=== PATIENT | female | born 1965 | race Caucasian/White ===

== ENCOUNTER 2022-11-02 08:24 | Emergency (ER) | payer OTHER ==
--- OUTSIDE RECORDS SUMMARY | 2022-11-02 08:34 | XMS REPORT | Continuity of Care Document ---
:1965 Author Organization [facility] t Address [address] [facility] [address] [place] [address] Care Team Providers Name Role Phone Pcp, Patient Does Not Have A Primary Care Physician [phone] ANDREA LANG Attending Clinician Unavailable DESTIN HAGEN Attending Clinician Unavailable Therapy, Adc Covid Infusion Attending Clinician Unavailable Destin Hagen MD Attending Clinician Doctor Unassigned, [place] Attending Clinician Unavailable Hanny Britton RN Attending Clinician Unavailable Only, Ang Db Test Attending Clinician Unavailable Arlene Ya MD Attending Clinician ARLENE YA Attending Clinician Unavailable Mark Antoine Attending Clinician Unavailable Physician, No Primary or Family Admitting Clinician Unavaila ble UNDEFINED Admitting Clinician Unavailable Payers Payer Name Policy Type Policy Number Effective Date Expiration Date S cam [employer] 2 [id number] 2020 00:00:00 [employer] COMMERCIAL [id number] 2019 OUT OF NETWORK 00:00:00 Problems This patient has no known problems. Allergies, Adverse Reactions, Alerts Allergy Allergy Status Severity Reaction(s) Onset Inactive Treating Comm ents Source Name Type Date Date Clinician Hydrocod Propensi Active Unknown - Uni vers one ty to See comments 4-05 ity of adverse 00:00: [place] reaction 00 Medical s Branch HYDROCOD DRUG Active Unknown-Cmnt Un ajit ONE INGREDI -05 ity of 00:00: [place] 00 Medical Branch hydrocod DA Active MO [facility] one 10-26 Clear 00:00: [place] 00 [facility] hydrocod DA Active MO "FEELS LIKE [facility] one COMING OUT 10-26 Clear OF MY SKIN" 00:00: [place] 00 [facility] NO KNOWN Drug Active Univers ALLERGIE Class ity of S [facility] Social History Social Habit Start Date Stop Date Quantity Comments Source Exposure to Not sure [facility] SARS-CoV-2 (event) [facility] Sex Assigned At [birth year] [facility] 00:00:00 00:00:00 Medical [place] Smoking Status Start Date Stop Date Source Unknown if ever smoked [facility] Medications Ordered Filled Start Stop Current Ordering Indication Dosage Frequency Signature Comments Components Source Medication Medication Date Date Medication? Clinician (SIG) Name Name casirivimab 2020-05- No [id number] 1200mg 1,200 mg, [facility] -imdevimab 02-21 Subcutaneo it y of (REGEN-COV 20:45: 19:27 us, ONCE, [place] (EUA)) 00 :00 1 dose, On Medical injection [facility] 1,200 mg 02/21/21 at 1545, Routine Vital Signs Vital Name Observation Time Observation Value Comments Source Systolic blood 2021-02-21 20:12:00 140 mm[Hg] Univer sity of pressure [facility] Diastolic blood 2021-02-21 20:12:00 64 mm[Hg] [facility] rate 2021-02-21 20:12:00 63 /min [facility] Body temperature 2021-02-21 20:12:00 36.83 Caty [facility] Respiratory rate 2021-02-21 20:12:00 18 /min [facility] Oxygen saturation in 2021-02-21 20:12:00 95 /min [facility] Arterial blood by [facility] Pulse oximetry Branch Body height 2021-02-21 19:00:00 172.7 cm [facility] Body weight 2021-02-21 19:00:00 99.791 kg [facility] BMI 2021-02-21 19:00:00 33.45 kg/m2 [facility] Procedures Procedure Date / Time Performed Performing Clinician [facility] e CONSENT/REFUSAL FOR 2021-02-21 05:01:00 Doctor Unassreinier, Betty Marie [facility] DIAGNOSIS AND Name [facility] TREATMENT [id number] 2020-02-02 00:00[facility]00 [facility] [id number] 2020-02-02 00:00:00 [facility] [id number] 2019-11-10 00:00:00 [facility] [id number] 2019-11-10 00:00:00 [facility] Encounters Start End Encounter Admission Attending Care Care Encounter Source Date/Time Date/Time Type Type Clinicians Facility Department ID 2021-02-22 2021-02-22 Outpatient SARAH LANG [id number] Sarah 08:45:00 08:45:00 ANDREA vann 2021-02-21 2021-02-21 Outpatient Felecia HAGEN [facility] [id number] Univers 14:00:00 14:00:00 DESTIN olivo [facility] 2021-02-21 2021-02-21 Nurse Therapy, Ad[facility] Covid Infusion [facility] [id number] Univers 12:11:36 13:11:36 Visit Destin Hagen 350.1.13.10 ity of [place] [id number] [facility] 053 Branch 2021-02-21 2021-02-21 Orders Doctor EPPERSON 1.2.840.114 [id number] Univers 00:00:00 00:00:00 Only UnassignedJUSTO 350.1.13.10 ity of [place] [facility] 4.2.7.2.686 [place] as [phone] [facility] 009 Branch 2021-02-19 2021-02-19 Letter ZEENAT Britton 1.2.840.114 [id number] Univers 00:00:00 00:00:00 (Out) Hanny KEMP 350.1.13.10 it y of [facility] 4.2.7.2.686 [place] [id number] [address] 2021-02-18 2021-02-18 Laboratory Only, Ang Db Test [facility] 1.2.8 40.114 [id number] Univers 14:00:50 14:15:50 Only Arlnee Ya [facility] 350.1.13.10 ity of [place] 4.2.7.2.686 [place] [id number] [facility] [address] Medical Office Building 2021-02-18 2021-02-18 Outpatient R JOSE [facility] [id number] Univers 14:00:00 14:00:00 ARLENE [facility] 2020-02-02 2020-04-18 Inpatient PETER Antoine HCATO [id number] [facility] 07:30:00 03:01:09 Mark [facility] 2020-02-02 2020-02-02 Outpatient IVETH Antoine LABO [id number] [facility] 17:50:00 17:50:00 Mark 50 [facility] 2019-10-27 2019-11-13 Inpatient PETER Antoine HCATO [id number] [facility] 14:30:00 09:57:26 Mark [facility] 2019-10-27 2019-10-27 Outpatient RAJEEV AntoineCL LABO [id number] [facility] 18:45:00 18:45:00 Mark 70 [facility] Results Test Description Test Time Test Comments Results Result Comments Source BASIC METABOLIC PANEL 2020-02-03 06:35:00 Test Item Value Reference Range Interpretation Comme nts SODIUM (test code = NA) 145 mmol/L 136-145 N POTASSIUM (test code = K) 4.5 mmol/L 3.5-5.1 N CHLORIDE (test code = CL) 108.0 mmol/L 98-107 H CARBON DIOXIDE (test code = 28.6 mmol/L 21-32 N CO2) GLUCOSE (test code = GLU) 125 mg/dL 70-110 H BLOOD UREA NITROGEN (test code 12 mg/dL 7-18 N = BUN) GLOMERULAR FILTRATION RATE 81.5 >60 U nit of measure: mL/min/1.73 (test code = GFR) [id number] e Range:Healthy Adults >90 mL/m in/1.73 m2 For Chronic Kidney Disease: Stage II Mild Decreas e in GFR 60-90 Stage III Moder ate Decrease in GFR 30-59 St age IV Severe Decrease in GFR 15-29 Stage V Kidney Failure <15 CREATININE (test code = CREAT) 0.74 mg/dL 0.55-1.30 N CALCIUM (test code = CA) 8.9 mg/dL 8.2-10.1 N HGB [id number] 05:59:00 Test Item Value Reference Range Interpretation Comments HEMOGLOBIN (test code = HGB) 11.1 g/dL 12-16 L HEMATOCRIT (test code = HCT) 34.1 % 37-47 L SPECIMEN COMMENT: POD #1- XR KNEE 1 OR 2 V [id number] 11:00:00 Patient Name: MARICHUY JONES Unit No: [id number] EXAMS: CPT CODE: [id number] XR KNEE 1 [place] 2V RT [address]74 AP AND LATERAL VIEW OF THE RIGHT KNEE COMMENT: Patient is status post total right knee arthroplasty. The prosthesis appears to be in good position. at 1100 Reported and signed by: Krystal Tidwell MD CC: Mark Antoine MD Technologist: ORA GRIFFIN. RT(R) Transcribed D/ (1100) [id number] [facility] NAME: MARICHUY JONES [address] [facility] PHYS: Mark Lockhart MD : 1965 AGE: 54 SEX: [place], [place] [address] LOC: Y.302 A PHONE #: [phone] EXAM DATE: 02/02/2020STATUS: ADM IN FAX #: [phone] RAD #: D/C DT PAGE 1 Signed Report Patient Name: MARICHUY JONES Unit No: [id number] EXAMS: CPT CODE: [id number] XR KNEE 1 OR 2 V RT 26578 (Continued) Orig Print D/T: S: 02/02/2020 (1103) [facility] NAME: MARICHUY JONES [address] [facility] PHYS: Mark Lockhart MD : 1965 AGE: 54 SEX: F [place], [place] [address] LOC: YCheryle302 A PHONE #: [phone] EXAM DATE: 02/02/2020 STATUS: ADM IN FAX #: [phone] RAD #: D/C DT PAGE 2 Signed ReportBASIC METABOLIC [id number] 06:25:00 Test Item Value Reference Range Interpretation Comments SODIUM (test code = 143 mmol/L 136-145 N NA) POTASSIUM (test code = 4.3 mmol/L 3.5-5.1 N K) CHLORIDE (test code = 105.0 mmol/L 98-107 N CL) CARBON DIOXIDE (test 29.4 mmol/L 21-32 N code = CO2) GLUCOSE (test code = 141 mg/dL 70-110 H GLU) BLOOD UREA NITROGEN 13 mg/dL 7-18 N (test code = BUN) GLOMERULAR FILTRATION 99.9 >60 Unit o f measure: RATE (test code = GFR) mL/mi n/1.73 m1Eazdidrui Range:Healthy Adults >90 mL/min/1.73 m2 For Chronic Kidney Disease: Stage II Mild Decrease i n GFR 60-90 Stage III Moderate Decrea se in GFR 30-59 St age IV Severe Decre ase in GFR 15-29 St age V Kidney Failur e <15 CREATININE (test code 0.62 mg/dL 0.55-1.30 N = CREAT) CALCIUM (test code = 8.4 mg/dL 8.2-10.1 N CA) CBC W/AUTO [id number] 05:56:00 Test Item Value Reference Range Interpretation Comments WHITE BLOOD CELL (test code = 13.3 K/mm3 5.8-11.0 H WBC) RED BLOOD CELL (test code = RBC) 3.81 M/mm3 4.2-5.4 L HEMOGLOBIN (test code = HGB) 11.6 g/dL 12-16 L HEMATOCRIT (test code = HCT) 35.4 % 37-47 L MEAN CELL VOLUME (test code = 93 fL 80-98 N MCV) MEAN CELL HGB (test code = MCH) 30.4 pg 27-34 N MEAN CELL HGB CONCENTRATION (test 32.8 g/dL 30.8-34.1 N code = MCHC) RED CELL DISTRIBUTION WIDTH (test 13.1 % 11-16 N code = RDW) PLT (test code = PLT) 261 K/mm3 130-400 N MEAN PLATELET VOLUME (test code = 11.0 fL 8.9-12.1 N MPV) NEUTROPHIL % (test code = NT%) 85.3 % 45-70 H LYMPHOCYTE % (test code = LY%) 8.3 % 20-40 L MONOCYTE % (test code = MO%) 5.9 % 3-10 N EOSINOPHIL % (test code = EO%) 0.0 % 1-5 L BASOPHIL % (test code = BA%) 0.1 % 0.0-1.1 N NEUTROPHIL # (test code = NT#) 11.37 K/mm3 2.00-7.50 H LYMPHOCYTE # (test code = LY#) 1.11 K/mm3 1.50-4.00 L MONOCYTE # (test code = MO#) 0.78 K/mm3 0.2-0.8 N EOSINOPHIL # (test code = EO#) 0.00 K/mm3 0.04-0.4 L BASOPHIL # (test code = BA#) 0.01 K/mm3 0.02-0.10 L MANUAL DIFF REQUIRED (test code = NO MANUAL DIFF MDIFF) NUCLEATED RED BLOOD CELL (test 0 % 0-0 N code = NRBC) - XR KNEE 1 OR 2 V [id number] 12:10:00 Patient Name: MARICHUY JONES Unit No: [id number] EXAMS: CPT CODE: [id number] XR KNEE 1 [place] 2 [place] [address] LEFT KNEE 2 VIEWS PORTABLE COMMENT: The patient is status post joint replacement which is articulating normally. at 1210 Reported and signed by: John Zelaya MD CC: Mark Antoine MD Technologist: CLIFF KIM RT(R) Transcribed D/ (1210) t.LUBNAR.JCL [facility] NAME: MARICHUY JONES NS [address] [facility] PHYS: Mark Lockhart MD : 1965 AGE: 54 SEX: F [place], [place] [address] LOC: Y.998 12 PHONE #: [phone] EXAM DATE: 11/10/2019 STATUS: ADM IN FAX#: [phone] RAD #: D/C DT PAGE 1 Signed Report Patient Name: MARICHUY JONES Unit No: [id number] EXAMS: CPT CODE: [id number] XR KNEE 1 OR [address] [place] [address] (Continued) Orig Print D/T: S: 11/10/2019 (1213) [facility] NAME: MARICHUY JONES [address] [facility] PHYS: Mark Lockhart MD : 1965 AGE: 54 SEX: F [place], [place] [address] LOC: Y.998 12 PHONE #: [phone] EXAM DATE: 11/10/2019 STATUS: ADM IN FAX #: [phone] RAD #: D/C DT PAGE 2 S igned Report- USG NDL PLACEMENT (Bxg/Asp)2019-10-28 10:16:00 Patient Name: MARICHUY JONES Unit No: [id number] EXAMS: CPT CODE: [id number] USG NDL PLACEMENT (Bxg/Asp) 31293 INDICATION: Left knee pain. PROCEDURE: Ultrasound guided cryoanalgesia (Iovera) of the left anterior femoral cutaneous nerve and the superior and inferior branches of the infrapatellar branch of the saphenous nerve. DIRECTOR SEARCH: Dr. Mejia. MEDICATIONS: 1 % Lidocaine local anesthesia CO NTRAST: None. COMPLICATION: None immediately evident. DESCRIPTION: After the procedure, including indication and potential complications had been discussed with the patient and questions answered, written informed consent was obtained. The patient was then taken to the ultrasound suite and placed on the table in supine position with their treatment leg fully extended. The skin of the left knee was evaluated sonographically. The skin over the anterior femoral cutaneous nerve and the superior and inferior branches of the infrapatellar branch of the saphenous nerve was marked. The skin was then prepped and draped sterilely. A time out was performed. After achieving 1% Lidocaine local anesthesia, theIovera cryoanalgesia needle was inserted into the top of the treatment area, and the treatment was initiated. The duration of one treatment cycle was 60 seconds. After each treatment cycle, the needle was removed and repositioned in an overlapping position over the adjacent previous treatment location. A new treatment cycle was started. The treatment cycle was repeated a total of 4 times along the treatment area to treat the two branches of the infrapatellar saphenous nerve. The treatment cycle was repeated a total of 4 times a long a second treatment area to treat the anterior femoral cutaneous nerve. The patent's skin was cleaned and the wound was covered with a band-aid. The patient was instructed to stand and mobilize the knee joint. No immediate complication were observed. The patient tolerated the procedure well and was subsequently discharged in stable condition with instructions for follow up. Preprocedural pain level: 5/ 10 Postprocedural pain level: 4/ 10 IMPRESSION: Cryoanalgesia of the left anterior femoral cutaneous nerve and the superior and inferior branches of the infrapatellarbranch of the saphenous nerve as above. [facility] NAME: MARICHUY JONES [address] [facility] PHYS: Mark Lockhart MD : 1965 AGE: 54 SEX: F [place] [address] LOC: ElRAD PHONE #: [phone] EXAM DATE: 10/27/2019 STATUS: DEP CLI FAX #: [phone] RAD #: D/C DT PAGE 1 Signed Report (CONTINUED) Patient Name: MARICHUY JONES Unit No: [id number] EXAMS: CPT CODE: [id number] USG NDL PLACEMENT (Bxg/Asp) 10458 (Continued) ElectronicallySigned by Henny Mejia on 10/28/2019 at 1016 Reported and signed by: John Mejia M.D. CC: Mark Antoine MD Technologist: STEPHANIE DUCKWORTH RDMS, RVT Transcribed D/ (1016) DeshawnAlize [facility] NAME: MARICHUY JONES [address] [facility] PHYS: Mark Lockhart MD : 1965 AGE: 54 SEX: F [place] [address] LOC: Y.RADPHONE #: [phone] EXAM DATE: 10/27/2019 STATUS: DEP CLI FAX #: [phone] RAD #: D/C DT PAGE 2 Signed Report Patient Name: MARICHUY JONES Unit No: [id number] EXAMS: CPT CODE: [id number] USG NDL PLACEMENT (Bxg/Asp) 08991 (Continued) Orig Print D/T: S: 10/28/2019 (1019) [facility] NAME: MARICHUY JONES [address] [facility] PHYS: Mark Lockhart MD : 1965AGE: 54 SEX: F [place] [address] LOC: Y.RAD PHONE #: [phone] EXAM DATE: 10/27/2019 STATUS: DEP CLI FAX #: [phone] RAD #: D/C DT PAGE 3 Signed ReportCOMPREHENSIVE METABOLIC PANEL 2019-10-27 15:34:00 Test Item Value Reference Range Interpretation Comments SODIUM (test code = 142 mmol/L 136-145 N NA) POTASSIUM (test code = 3.6 mmol/L 3.5-5.1 N K) CHLORIDE (test code = 102.0 mmol/L 98-107 N CL) CARBON DIOXIDE (test 26.1 mmol/L 21-32 N code = CO2) GLUCOSE (test code = 138 mg/dL 70-110 H GLU) BLOOD UREA NITROGEN 12 mg/dL 7-18 N (test code = BUN) GLOMERULAR FILTRATION 82.8 >60 Unit o f measure: RATE (test code = GFR) mL/mi n/1.73 n1Lualvhkvk Range:Healthy Adults >90 mL/min/1.73 m2 For Chronic Kidney Disease: Stage II Mild Decrease i n GFR 60-90 Stage III Moderate Decrea se in GFR 30-59 St age IV Severe Decre ase in GFR 15-29 S tage V Kidney Failur e <15 CREATININE (test code 0.73 mg/dL 0.55-1.30 N = CREAT) TOTAL PROTEIN (test 6.4 g/dL 6.4-8.2 N code = PROT) ALBUMIN (test code = 4.0 g/dL 3.4-5.0 N ALB) GLOBULIN (test code = 2.4 g/dL 2.2-4.2 N GLOB) ALBUMIN/GLOBULIN RATIO 1.7 0.7-2.0 N (test code = A/G) CALCIUM (test code = 8.9 mg/dL 8.2-10.1 N CA) BILIRUBIN TOTAL (test 0.40 mg/dL 0.2-1.00 N code = BILT) SGOT/AST (test code = 23.0 U/L 15-37 N AST) SGPT/ALT (test code = 38.0 U/L 12-78 N Please note new ALT) normal range. ALKALINE PHOSPHATASE 64 U/L 46-116 N TOTAL (test code = ALKP) CBC W/AUTO [id number] 15:21:00 Test Item Value Reference Range Interpretation Comments WHITE BLOOD CELL (test code = WBC) 8.0 K/mm3 5.8-11.0 N RED BLOOD CELL (test code = RBC) 4.25 M/mm3 4.2-5.4 N HEMOGLOBIN (test code = HGB) 12.9 g/dL 12-16 N HEMATOCRIT (test code = HCT) 38.8 % 37-47 N MEAN CELL VOLUME (test code = MCV) 91 fL 80-98 N MEAN CELL HGB (test code = MCH) 30.4 pg 27-34 N MEAN CELL HGB CONCENTRATION (test 33.2 g/dL 30.8-34.1 N code = MCHC) RED CELL DISTRIBUTION WIDTH (test 13.1 % 11-16 N code = RDW) PLT (test code = PLT) 258 K/mm3 130-400 N MEAN PLATELET VOLUME (test code = 11.0 fL 8.9-12.1 N MPV) NEUTROPHIL % (test code = NT%) 59.1 % 45-70 N LYMPHOCYTE % (test code = LY%) 29.9 % 20-40 N MONOCYTE % (test code = MO%) 6.7 % 3-10 N EOSINOPHIL % (test code = EO%) 2.9 % 1-5 N BASOPHIL % (test code = BA%) 1.0 % 0.0-1.1 N NEUTROPHIL # (test code = NT#) 4.70 K/mm3 2.00-7.50 N LYMPHOCYTE # (test code = LY#) 2.38 K/mm3 1.50-4.00 N MONOCYTE # (test code = MO#) 0.53 K/mm3 0.2-0.8 N EOSINOPHIL # (test code = EO#) 0.23 K/mm3 0.04-0.4 N BASOPHIL # (test code = BA#) 0.08 K/mm3 0.02-0.10 N MANUAL DIFF REQUIRED (test code = NO MANUAL DIFF MDIFF) NUCLEATED RED BLOOD CELL (test 0 % 0-0 N code = NRBC) Notes Date/Time Note Provider Source 2020-02-03 07:10:00-00:00 [id number] [place] [address] PATIENT NAME: MARICHUY JONES ADMIT DATE : 02/02/20 ACCOUNT NO: [id number] ROOM NO: Y.302 AGE: 54 REPORT TYPE: DISCHARGE SUMMARY REPORT SEX: F ADMITTING PHYSICIAN:Mark Antoine MD ATTENDING PHYSICIAN:Mark Antoine MD ADMISSION DATE: 02/02/2020 DISCHARGE DATE: 02/03/2020 01:00:00 ADMITTING DIAGNOSIS: Right knee osteoarthritis. PRIMARY DISCHARGE DIAGNOSIS: Right knee osteoart hritis. OPERATIVE PROCEDURE PERFORME D: On 02/02/2020, computer-assisted imageless right total knee arthroplasty. HOSPITAL COURSE: Ms. Jones was taken to the ope rative suite on the date of admission where she underwent a computer-assiste d imageless right total knee arthroplasty without complic ations. Postoperatively, she received a total of 24 hours of IV antibiotic therapy. On the day of [facility], she is eating and voiding without difficulty. Her dressing is dry and intact. Her distal neurovascular status is intact. Hemoglob in was 11.1. She will be discharged to home today, weightbearing as tolerated. She was on aspirin, as well as compressive stockings for DVT prophylaxis. Outpa tient physiotherapy has been prescribed. Office followup in 2 weeks. CONDITION ON DISCHARGE: She is in stable conditi on at the time of discharge without questions or complaints. DISCHARGE MEDICATIONS: Please see discharge medi cation reconciliation sheet. Dictated By: Mark Antoine MD WT: DS:JEFFERY/MEAGAN/NTS Conf#: [id number]#: [id number] Authenticated by Mark Antoine MD On 0 06:20:29 AM Electronically Signed by Mark Antoine MD on 0 02/04/20 at 0620 PATIENT NAME: MARICHUY JONES 2020-02-02 14:16:00-00:00 [facility] Clinical Note REPORT#:[id number] REPORT STATUS: Signed DATE:02/02/20 TIME: 1415 PATIENT: MARICHUY JONES UNIT #: [id number] [facility] AGE: 54 SEX: F ATTEND: Cm Antoine MD ADM AUTHOR: Ariane Gamino MD * ALL edits or amendments must be made on the Pocits/computer document * Clinical Note Note: Internal Medicine Ariane Gamino MD (office: [phone]) Internal Medicine Consult at request of : Dr. Laura Antoine Chief Complaint: right knee pain HPI: 54 yo F is now s/p Right Total Knee Arthrop lasty (TKA) by Dr. Antoine. Ms. Jones relates years of progressive right kn ee pain (recently severe), worse with activity, and popping crunchy with re stricted motion at times in quality. She has failed cons ervative management. She had a left TKA on 11/10/19. Comorbidities: see below. PmHx: . Hypertension, Hypercholesterolemia, Asth ma, Hypothyroidism, Gerd, Psoriatic arthritis Migraines, Osteoarthritis ALLERGY: Allergies Allergy Severity Reaction Updated Coded hydrocodone Intermediate "FEELS LIKE COMING OU T 10/27/19 OF MY SKIN" Home Medications: Home Medications: METOPROLOL SUCC XL (TOPROL XL) 100 MG PO DAILY LEVALBUTEROL (XOPENEX HFA 45 MCG/ACT 15 GM) 1 PU FF INH RTQ4H PRN PRN ASTHMA IRBESARTAN (AVAPRO) 300 MG PO DAILY LEVOTHYROXINE (SYNTHROID) 75 MCG PO DAILY OMEPRAZOLE DR (OMEPRAZOLE) 20 MG PO DAILY UBIDECARENONE (CO Q-10) (Unknown Dose) PO DAILY ROSUVASTATIN (CRESTOR) 10 MG PO MON/WED/FRI HYDROCHLOROTHIAZIDE (HCTZ) 25 MG PO MON/WED/FRI NAPROXEN SODIUM (ALEVE) 440 MG PO Q12H PRN PRN P AIN CHOLECALCIFEROL (VITAMIN D3) (VITAMIN D3) 1,000 UNITS PO DAILY CYANOCOBALAMIN (VITAMIN B-12) 1,000 MCG PO DAILY SgHx: . Left knee meniscus, face lift, wisdom te eth, left TKA SHx: Tob: ppd x 40 yrs. FHx: .No significant hx of DVT/PE. Alcohol: 2-4x/week Drugs: none Lives: with spou se ROS: [X] all systems reviewed and negative excep t- [ ] Con: . Fever/ Wt loss [ ] CV: cpain/edema. [ ] Pul: . cough/SOB [ ] GI: hematemesis/diarrhe a [ ] : . dysuria or hematuria [X] MS: knee pain [ ] Neuro: . headache/loss sensation [ ] Heme: . adenopathy/Ecchymosis Vitals: Vital Signs: Date Time Temp Pulse Resp B/P B/P Pulse O2 O2 Flow FiO2 Mean Ox Delivery Rate 02/01 2213 36.4 88 20 136/76 100 96 Nasal cannula 02/01 2017 37.0 82 15 159/93 114.8 97 02/01 1902 35.2 87 18 175/72 104 97 Nasal cannula 02/01 1537 97 Nasal 3.217008 cannula 02/01 1523 36.6 86 18 144/79 100.9 98 Nasal 3.0 94140 cannula 02/01 1156 35.9 67 18 156/82 106.6 100 Nasal 3. 153164 cannula 02/01 0953 100 Nasal 3.152207 cannula 02/01 0950 Nasal 3.547534 cannula 02/01 0944 35.9 67 17 163/98 119.8 96 Nasal 3.0 58307 cannula 02/01 0904 Nasal 3.303477 cannula 02/01 0845 73 20 156/72 100 Nasal 3.872957 cannula 02/01 0830 74 20 155/70 100 Nasal 3.924756 cannula 09/15 0814 Simple 6.415624 mask 02/01 0812 36.4 69 16 100/55 93 Simple 6.723229 mask 02/01 0600 36.3 68 16 201/81 98 Room air Gen: Alert, in mild discomfort, nl nutrition. EYE: Nl lids conjunctiva. ENT: Nl ears Nose, nl lips,. Neck: Supple, nl thyroid, No masses. CV: Regular Rate Rhythm, no heave or significant murmur. Edema- none Feet toes normal temperature. RESP: Clear to Auscultation, normal Respiratory effort. ABD: Soft, NonDistended,. LYM: No significant cervical Lymphadenopathy. MS: No sign of compartment syndrome, Knee is wra pped, NEURO: Nonfocal, grossly normal sensation of LE, +Ankle DF/PF PSY: Normal insight, Normal mood, oriented, . Preop Labs (11/11/19): CBC:. Hgb 11.6, Plt 261, CHEM: Na 143, K 4.3, Cr 0.62 (eGFR 99.9%), . (medium to high risk of complications or morbidi ty) (major surgery) (IV sedative, meds) Assessment Plan 1.) Anemia of Acute Blood Loss- .will recheck to elías. 2.) S/p RTKA .acute pain control. Anticoagulatio n as per 3.) Hypertension- .follow BP and hold Rxs if SBP <120. Ariane Gamino M.D. Thanks! Electronically Signed by Ariane Gamino MD on 02/02 at 0003 [facility] #:[id number] END OF REPORT 2020-02-02 08:00:00-00:00 [id number] [facility] [place] [address] PATIENT NAME: MARICHUY JONES ADMIT DATE: 02/02/20 ACCOUNT NO: [id number] ROOM NO: Y.302 AGE: 54 REPORT TYPE: OPERATIVE REPORT SEX: F ADMITTING PHYSICIAN:Mark Antoine MD ATTENDING PHYSICIAN:Mark Antoine MD OPERATION DATE: 02/02/2020 PREOPERATIVE DIAGNOSIS: Right knee osteoarthriti s, M17.11. POSTOPERATIVE DIAGNOSIS: Right knee osteoarthrit is, M17.11. OPERATIVE PROCEDURES PERFORMED: 1. Computer-assisted imageless right total knee arthroplasty, 07277. 2. 11435. IMPLANTS UTILIZED: DePuy Sigma rotating platform total knee arthroplasty, size 3 right posterior-stabilized femur, size 4 mobile-bearing tibial tray, 3 x 10 mm rotating platform posterior-stabilized tibial in sert, and 35-mm oval patella. All components cemented. ANESTHESIA: General. TOURNIQUET TIME: 18 minutes. ESTIMATED BLOOD LOSS: Less than 20 mL. SURGEON: Mark Antoine MD DENSITY CONTROL PUNCHER: MALCOLM Irving CLINICAL INDICATIONS: Ms. Jones is a very pleas ant 54-year-old female from [place], [place], who has been having severe and progressive pain involving her right knee. Her pain is occurring on a daily basis. Her pain has been refractory to extensive nonoperative interventio n. She has undergone a prior left total knee arthroplasty, has done exceeding ly well with this. Due to her progressive pain and lack of response to nonoperative treatment, she is admitted for computer-assisted imageless right total knee arthroplasty. OPERATIVE NARRATIVE: 1. COMPUTER-ASSISTED IMAGELESS RIGHT TOTAL KNEE ARTHROPLASTY, 54097. 2. 14070. Ms. Jones was brought to [facility] operative suite, at which time, she was placed in supine position on the OR table. Routine monitor s were established. General anesthesia was delivered. Af ter satisfactory induction of general anesthesia, a tourniquet was applied to the patient's right lower extremity per Ms. Damon and the right leg was circumfere ntially prepped and draped in usual sterile fashion PATIENT NAME: MARICHUY JOENS per Marisol. The leg was then elevated, exsanguinated, tourniquet insufflated to 300 mmHg. The knee was flexed to 100 degrees. Anterior midline incision was performed. Medial parapatellar arthrotomy was pe rformed. Patella was everted laterally. Severe grade IV changes noted involvi ng the medial compartment, patellofemoral joint, grade II to III changes in lateral compartment. Ligament balancing was achieved. Hypertrophic os teophytes were resected. Medial and lateral menisci were excised. Anterio r and posterior cruciate ligaments were then resected. At this time, a centramedullary pin was placed i n the anatomic center of the distal femur. The OrthAlign distal femoral resec tion guide was then placed across the centramedullary pin. The computer liberty mary were placed and the knee was registered. The distal f emoral resection guide was then pinned in 3 degrees of flexion, 0 degrees of varus valgus angulation referable to the mechanical axis. 10 mm were then resected off the distal fe mur. The OrthAlign guide was removed and the distal femur was appropriately s ized. A size-3 cutting block was used to create the anterior, followed by pos terior, followed by chamfer cuts. The appropriate osteotomy guide was then p laced across distal femur and the femoral notch was resected. The proximal tib ia was translated anteriorly. Utilizing extramedullary instrumentation, the pr oximal tibia was resected perpendicular to its mechanical axis resecting 1 0 mm from the lateral tibial plateau. The proximal tibia was appropri ately sized and a size-4 baseplate was noted to provide optimal coverage. The proximal tibia was appropriately prepped. The patella was then resected so as to ensure orthodoxy of normal height with prosthesis in place. Flexion and extension gaps w ere checked and noted to be equal. Trial components were placed in the knee. Optimal stability was n oted with a 10 mm insert, 0 degrees of gravity extension with 135 de grees of gravity flexion were present. Patellofemoral tracking was normal limits. There was no varus or valgus instability noted. The knee was stable in both f lexion as well as extension. The trial components were removed. The b beti surfaces were prepared with cement implantation utilizing pulsatile lavage irrigati on. Medium Hemovac drain was then placed deep to the extensor mechanism and t he knee was placed into 70 degrees of flexion. Arthrotomy closed in waterti ght fashion with a 2.0 Quill suture. Skin was closed with interrupted 0 Vicry l, followed by 2-0 Vicryl, followed by surgical ivis per Ms. Marcela livingston. Sterile dressing was applied by Ms. Damon. The patient was then extubated, taken to r ecovery room awake and alert without any anesthetic or operative complication s. At the end of the case, sponge and needle counts were correct x2. During the procedure, Ms. Damon was inval uable in positioning the patient along with preparation and draping of extremity. She w as also responsible for providing surgical exposure throughout the proce dure, which greatly expedited performance of the procedure in addition to prot ection of neurovascular structures. Finally, she was responsible for shree sure of the postoperative incisions and application of postoperative dress ing. The OrthAlign computer guide was invaluable in reducing both intraoperative and postoperative blood loss due to the fact that no intramedullary hole was placed in the distal femur. In addition, it has been sh own that the accuracy of the OrthAlign system greatly improves distal femoral resection as compared to standard intramedullary instrumentation. PATIENT NAME: MARICHUY JONES Dictated By: Mark Antoine MD WT: OP:JEFFERY/MAEGAN/NTS Conf#: [id number]/DID#: [id number] Authenticated by Mark Antoine MD On 0 09:39:45 AM Electronically Signed by Mark Antoine MD on 0 02/02/20 at 0940 PATIENT NAME: MARICHUY JONES 2020-02-02 07:52:00-00:00 [facility] Brief Op Note REPORT#:[id number] REPORT STATUS: Signed DATE:02/02/20 TIME: 751 PATIENT: MARICHUY JONES UNIT #: [id number] ROOM/BED: [place] [address] : 64 AGE: 54 SEX: F ATTEND: Cm Antoine MD ADM AUTHOR: Mark Antoine MD * ALL edits or amendments must be made on the el ectronic/computer document * Op/Inv Proc Note - Brief Pre-procedure diagnosis: Right knee OA Post-procedure diagnosis: same as pre procedure dx Procedures performed: computer assisted imageless right TKA Primary Surgeon: Arash Pediatric Oncology Nurse(s): Marisol FOWLER Findings: as above Complications: none Estimated blood loss in ml's: 20 cc Specimens removed/altered: none Electronically Signed by Mark Antoine MD on at 0754 RPT #:[id number] END OF REPORT 2020-01-31 10:36:00-00:00 [id number], [place] [address] PATIENT NAME: MARICHUY JONES ADMIT DATE: 02/02/20 ACCOUNT NO: [id number] ROOM NO: Y.998 AGE: 54 REPORT TYPE: HISTORY AND PHYSICAL SEX: F ADMITTING PHYSICIAN:Mark Antoine MD ATTENDING PHYSICIAN:Mark Antoine MD ADMISSION DATE: 02/02/2020 ADMITTING DIAGNOSIS: Right knee osteoarthritis, M17.11. HISTORY OF PRESENT ILLNESS: Ms. Jones is a very pleasant 54-year-old female, who is well known to me from a previous left tot al knee arthroplasty. She is employed as a realtor. She has done exceedingly well with her left knee. She is having progressive and disabling pain in the right knee. The pain is occurring on a daily basis. Her pain has been re fractory to extensive nonoperative intervention including intraarticul ar injections, bracing, physiotherapy and anti-inflammatories. Her clini shena as well as radiographic evaluation revealed severe tricompartmental arth ropathy. She is admitted for computer-assisted imageless right total knee art hroplasty. PAST MEDICAL HISTORY: Anemia, asthma, hypertensi on, migraine headaches, hypothyroidism, hiatal hernia, reflux, and sleep apnea. PAST SURGICAL HISTORY: Knee arthroscopy, left to connor knee arthroplasty. FAMILY HISTORY: Arthritis, asthma, breas t carcinoma, lung carcinoma, diabetes, hypertension, and cerebrovascular disease. SOCIAL HISTORY: She is . She smokes half a pack a day. She drinks 3 mixed drinks per week. She is employed as a real tor. MEDICATIONS: Consist of metoprolol, irbesartan, and levothyroxine. ALLERGIES: SHE HAS ALLERGIES TO HYDROCODONE. REVIEW OF SYSTEMS: Negative. PHYSICAL EXAMINATION: VITAL SIGNS: Height 5 feet 9 inches tall, 90.9 k ilograms. HEENT: Within normal limits. CARDIAC: Regular rate and rhythm. No murmur. CHEST: Clear. ABDOMEN: Benign. BACK: No CVA tenderness. PERTINENT ORTHOPEDIC EVALUATION: Leg lengths are equal. Full painless motion of both hips. Examination of right knee reveals a fixed varus deformity. She has painful passive motion. She has 5 to 110 deg [place] of motion. There is no instability. Her distal neurovascular status is intact. Bilateral hip PATIENT NAME: MARICHUY JONES examination is within normal limits. DIAGNOSTIC DATA: Radiographic evaluation demonst rate varus alignment with bphp-ga-ybgm disease. ASSESSMENT: Right knee pain secondary to osteoar thritis. SURGICAL PLAN: Right total knee arthroplasty, co mputer-assisted imageless. I have gone over at length wit h Ms. Jones the associated risks involved with this procedure. She understands these include, but no t limited to bleeding, transfusion requirement, inf ection, neurovascular damage, persistent pain, loss of motion, need for further operative interventi on, leg length inequality, painful scar, loosening of t he prosthesis requiring possible revision, deep vein thrombus leading to pulmonary emboli along with complications secondary to anesthesia. She further understands that she cristina l undergo a rotating platform posterior stabilized total knee arthroplasty, wh ich is the exact same design that she has in her left knee. In addition, she understands that there are no guarantees or warranties that she will be pain f ree as a result of the procedure. She accepts these risks and gives her informed consent to proceed. Dictated By: Mark Antoine MD WT: HP:JEFFERY/MEAGAN/CHIDI Conf#: [id number]/DID#: [id number] Authenticated by Mark Antoine MD On 06:50:09 AM Electronically Signed by Mark Antoine MD on 0 02/02/20 at 0650 PATIENT NAME: MARICHUY JONES 2019-11-11 10:04:00-00:00 [facility]) Clinical Note REPORT#:[id number] REPORT STATUS: Signed DATE:11/11/19 TIME: 1004 PATIENT: MARICHUY JONES UNIT #: [id number] [facility] AGE: 54 SEX: F ATTEND: Krishna Antoine MD ADM AUTHOR: Seth Purvis MD * ALL edits or amendments must be made on the el [employer]/computer document * Clinical Note Note: [facility] Seth siegel M.D. (cell text [phone]) Assessment/Plan 1.) Anemia of acute blood loss- .Hgb 11.6, asymp tomatic. 2.) S/p Left TKA- .acute pain control. Anticoagu lation as per Dr. Antoine. 3.) Hypertension- .follow BP and hold Rxs if SBP <120. 4.) OsteoArthritis Hyperlipidemia Hypothyroid GE RD Asthma- .continue on Rx. Stable * OK for DISCHARGE per Internal Medicine. Prior Events/Overnight: Uneventful. Chief Complaint: No significant complaints. Objective Vital Signs: Date Time Temp Pulse Resp B/P B/P Pulse O2 O2 F low FiO2 Mean Ox Delivery Rate 11/10 0720 96.8 65 16 118/63 81 99 Nasal cannula 11/10 0713 96.4 69 14 145/75 98.5 100 Room air 11/10 0449 96 Nasal 3.866750 32 cannula 11/10 0323 98.2 74 16 157/80 105.6 99 Nasal cannula 11/10 0023 98.1 74 16 162/77 105.2 98 Nasal cannula 11/09 2337 95 Nasal 3.203911 32 cannula 11/09 2311 98.1 83 16 180/90 119.9 99 Nasal cannula 11/09 1856 97.7 90 16 163/78 106.5 94 Room air 11/09 1607 98.6 84 17 155/79 104.0 96 Room air 11/09 1403 Nasal 3.023885 cannula 11/09 1306 100 Nasal 3.432345 cannula 11/09 1255 97.0 80 18 165/92 116.7 100 Nasal cannula 11/09 1203 Simple 6.516707 mask 11/09 1203 64 14 163/79 99 Nasal 3.331124 cannula 11/09 1148 67 15 162/78 100 Nasal 3.076892 cannula 11/09 1133 68 14 173/85 99 Simple 6.185322 mask 11/09 1118 97.8 79 16 179/81 97 Simple 6.375188 mask Gen: Alert, oriented, in mild discomfort Neck: No Masses, No Thyromegaly- CV: Regular Rate Rhythm / Edema- no significant Resp: Clear To Ascultation / Normal Respiratory Effort ABD: NonTender / NonDistended MS/Skin: No sign of compartment syndrome / +ankl e DF/PF / nl capillary refill of toes Other: drain out Labs/X-ray: Laboratory Tests: 11/10 0350 Chemistry Sodium (136 - 145 mmol/L) 143 Potassium (3.5 - 5.1 mmol/L) 4.3 Chloride (98 - 107 mmol/L) 105.0 Carbon Dioxide (21 - 32 mmol/L) 29.4 BUN (7 - 18 mg/dL) 13 Creatinine (0.55 - 1.30 mg/dL) 0.62 Glomerular Filtr Rate (>60) 99.9 Glucose (70 - 110 mg/dL) 141 H Calcium (8.2 - 10.1 mg/dL) 8.4 Hematology WBC (5.8 - 11.0 K/mm3) 13.3 H RBC (4.2 - 5.4 M/mm3) 3.81 L Hgb (12 - 16 g/dL) 11.6 L Hct (37 - 47 %) 35.4 L MCV (80 - 98 fL) 93 MCH (27 - 34 pg) 30.4 MCHC (30.8 - 34.1 g/dL) 32.8 RDW (11 - 16 %) 13.1 Plt Count (130 - 400 K/mm3) 261 MPV (8.9 - 12.1 fL) 11.0 Neut % (Auto) (45 - 70 %) 85.3 H Lymph % (Auto) (20 - 40 %) 8.3 L [place] % (Auto) (3 - 10 %) 5.9 Eos % (Auto) (1 - 5 %) 0.0 L Baso % (Auto) (0.0 - 1.1 %) 0.1 Neut # (Auto) (2.00 - 7.50 K/mm3) 11.37 H Lymph # (Auto) (1.50 - 4.00 K/mm3) 1.11 L [place] # (Auto) (0.2 - 0.8 K/mm3) 0.78 Eos # (Auto) (0.04 - 0.4 K/mm3) 0.00 L Baso # (Auto) (0.02 - 0.10 K/mm3) 0.01 L Add Manual Diff (MANUAL DIFF) NO Nucleated RBC % (0 - 0 %) 0 Seth Elder M.D. at 110[address] [facility] #:[id number] END OF REPORT 2019-11-11 06:52:00-00:00 [id number] [place] [address] PATIENT NAME: MARICHUY JONES ADMIT DATE: 11/10/19 ACCOUNT NO: [id number] ROOM NO: Y.312 AGE: 54 REPORT TYPE: DISCHARGE SUMMARY REPORT SEX: F ADMITTING PHYSICIAN:Mark Antoine MD ATTENDING PHYSICIAN:Mark Antoine MD ADMISSION DATE: 11/10/2019 DISCHARGE DATE: 11/11/2019 01:00:00 ADMITTING DIAGNOSIS: Left knee osteoarthritis. PRIMARY DISCHARGE DIAGNOSIS: Left knee osteoarth octavio, M17.12. OPERATIVE PROCEDURES PERFORM ED: On 11/10/2019, computer-assisted imageless left total knee arthroplasty. HOSPITAL COURSE: Ms. Jones was taken to the ope rative suite on the date of admission where she underwent a computer-assiste d imageless left total knee arthroplasty without complications. Postoperativ lópez, the patient received a total of 24 hours of IV antibiotic therapy. On t he day of discharge, she is eating and voiding without difficulty. Her incis ion is benign. Her distal neurovascular status is intact. She is weightbea ring as tolerated. Ms. Jones will be discharged to home today. Off ice followup in 2 weeks. Outpatient physiotherapy has been instructed. Bello linder is on aspirin as well as compressive stockings for DVT prophylaxis. Her h emoglobin is 11.6 at the time of discharge. CONDITION ON DISCHARGE: She is in stable condition at time of discharge without questions or complaints. DISCHARGE MEDICATIONS: Please see discharge medi cation reconciliation sheet. Dictated By: Mark Antoine MD WT: DS:JEFFERY/MEAGAN/CHIDI Conf#: [id number]/DID#: [id number] Authenticated by Mark Antoine MD On 0 11:46:18 AM Electronically Signed by Mark Antoine MD on 0 11/11/19 at 1147 PATIENT NAME: MARICHUY JONES 2019-11-10 17:40:00-00:00 [facility]) Clinical Note REPORT#:[id number] REPORT STATUS: Signed DATE:11/10/19 TIME: 1739 PATIENT: MARICHUY JONES UNIT #: [id number] ROOM/BED: [address] : 64 AGE: 54 SEX: F ATTEND: Cm Antoine MD ADM AUTHOR: Seth Purvis MD * ALL edits or amendments must be made on the [employer]/computer document * Clinical Note Note: [facility] Seth siegel MD (cell text [phone]) Internal Medicine Consult at request of : Dr Deepak Antoine - Correct note for Marichuy Jones - Chief Complaint: left knee pain HPI: 54 yo F is now s/p Left Total Knee Arthropl asty (TKA) and cortisone injection of right knee by Dr. Antoine. Ms. Jones relates years of progressive left knee pain (recently severe), worse with act ivity, and popping crunchy with restricted motion at times in quality. She has failed conservative management. Comorbidities: see below. PmHx: .Hypertension, Hypercholesterolemia, Asthm a, Hypothyroidism, Gerd, Psoriatic arthritis Migraines, Osteoarthritis, ALLERGY: Allergies: hydrocodone (Coded, Intermed iate, "FEELS LIKE COMING OUT OF MY SKIN", 10/27/19) Home Medications: Home Medications: METOPROLOL SUCC XL (TOPROL XL) 100 MG PO DAILY LEVALBUTEROL (XOPENEX HFA 45 MCG/ACT) 1 PUFF INH RTQ4H PRN PRN ASTHMA IRBESARTAN (AVAPRO) 300 MG PO DAILY LEVOTHYROXINE (SYNTHROID) 75 MCG PO DAILY OMEPRAZOLE DR (OMEPRAZOLE) 20 MG PO DAILY UBIDECARENONE (CO Q-10) (Unknown Dose) PO DAILY ROSUVASTATIN (CRESTOR) 10 MG PO MON/WED/FRI HYDROCHLOROTHIAZIDE (HCTZ) 25 MG PO MON/WED/FRI NAPROXEN SODIUM (ALEVE) 440 MG PO Q12H PRN PRN P AIN CHOLECALCIFEROL (VITAMIN D3) (VITAMIN D3) 1,000 UNITS PO DAILY CYANOCOBALAMIN (VITAMIN B-12) 1,000 MCG PO DAILY SgHx: . Left knee meniscus, face lift, wisdom te eth SHx: Tob: ppd x 40 yrs. FHx: .No significant hx of DVT/PE. Alcohol: 4 drinks/week Drugs: none Lives: with s pouse Vitals: Vital Signs: Date Time Temp Pulse Resp B/P B/P Pulse O2 O2 F low FiO2 Mean Ox Delivery Rate 11/09 1607 98.6 84 17 155/79 104.0 96 Room air 11/09 1403 Nasal 3.931161 cannula 11/09 1306 100 Nasal 3.777190 cannula 11/09 1255 97.0 80 18 165/92 116.7 100 Nasal cannula 11/09 1203 Simple 6.481693 mask 11/09 1203 64 14 163/79 99 Nasal 3.256425 cannula 11/09 1148 67 15 162/78 100 Nasal 3.253172 cannula 11/09 1133 68 14 173/85 99 Simple 6.754634 mask 11/09 1118 97.8 79 16 179/81 97 Simple 6.220583 mask 11/09 0738 97.2 66 16 177/83 96 Room air Gen: Alert, in mild discomfort, nl nutrition. EYE: Nl lids conjunctiva. ENT: Nl ears Nose, nl lips,. Neck: Supple, nl thyroid, No masses. CV: Regular Rate Rhythm, no heave or significant murmur. Edema- none Feet toes normal temperature. RESP: Clear to Auscultation, normal Respiratory effort. ABD: Soft, NonDistended,. LYM: No significant cervical Lymphadenopathy. MS: No sign of compartment syndrome, Knee is wra pped, drain, cold pack NEURO: Nonfocal, grossly normal sensation of LE, +Ankle DF/PF PSY: Normal insight, Normal mood, oriented, . Preop Labs (10/27/19): CBC:. Hgb 12.9, Plt 258, CHEM: Na 142, K 3.6, Cr 0.73 (eGFR 82.8%), . Ekg: NSR (medium to high risk of complications or morbidi ty) (major surgery) (IV sedative, meds) Assessment Plan 1.) Anemia of Acute Blood Loss- .will recheck to elías. 2.) S/p Left TKA- .acute pain control. Anticoagu lation as per Dr. Antoine. 3.) Hypertension- .follow BP and hold Rxs if SBP <120. 4.) OsteoArthritis Hyperlipidemia Hypothyroid GE RD Asthma- .continue on Rx. Stable Seth Elder M.D. Thanks! This is the note for Marichuy Jones Vital Signs Date Temp Pulse Resp B/P B/P Mean Pulse Ox FiO2 11/09 97.0-98.6 64-84 14-18 155-179/78-92 104.0 -116.7 96-100 at 1751 RPT #:[id number] END OF REPORT 2019-11-10 16:52:00-00:00 [facility]) Clinical Note REPORT#:[id number] REPORT STATUS: Signed DATE:11/10/19 TIME: 1651 PATIENT: MARICHUY JONES UNIT #: [id number] ROOM/BED: [address] : 64 AGE: 54 SEX: F ATTEND: Cm Antoine MD ADM AUTHOR: Seth Purvis MD * ALL edits or amendments must be made on the [employer]/computer document * Clinical Note Note: [facility] Seth siegel MD (cell text [phone]) Internal Medicine Consult at request of : Dr Mee Crum Chief Complaint: left shoulder pain HPI: 57yo M is now s/p Left Shoulder scope, revi alyse rotator cuff repair by Dr. Crum. Mr. Fernández relates years of progr essive left shoulder pain ( recently severe), worse with activity, and poppi ng crunchy with restricted motion at times in quality. He has failed conser vative management. Comorbidities: see below. PmHx: . Elevated blood pressure readings, Type 2 diabetes Mellitus. Hypertension, Gerd ALLERGY: Allergies: hydrocodone (Coded, Intermed iate, "FEELS LIKE COMING OUT OF MY SKIN", 10/27/19) Home Medications: Home Medications: METOPROLOL SUCC XL (TOPROL XL) 100 MG PO DAILY LEVALBUTEROL (XOPENEX HFA 45 MCG/ACT) 1 PUFF INH RTQ4H PRN PRN ASTHMA IRBESARTAN (AVAPRO) 300 MG PO DAILY LEVOTHYROXINE (SYNTHROID) 75 MCG PO DAILY OMEPRAZOLE DR (OMEPRAZOLE) 20 MG PO DAILY UBIDECARENONE (CO Q-10) (Unknown Dose) PO DAILY ROSUVASTATIN (CRESTOR) 10 MG PO MON/WED/SAT HYDROCHLOROTHIAZIDE (HCTZ) 25 MG PO MON/WED/FRI NAPROXEN SODIUM (ALEVE) 440 MG PO Q12H PRN PRN P AIN CHOLECALCIFEROL (VITAMIN D3) (VITAMIN D3) 1,000 UNITS PO DAILY CYANOCOBALAMIN (VITAMIN B-12) 1,000 MCG PO DAILY SgHx: .Left hip scope x 2, head surgery, left TH A SHx: Tob: none FHx: .No significant hx of DVT/PE . Alcohol: hx of abuse, now sober Drugs: hx of abu se, now sober Lives: alone Vitals: Vital Signs: Date Time Temp Pulse Resp B/P B/P Pulse O2 O2 F low FiO2 Mean Ox Delivery Rate 11/09 1607 98.6 84 17 155/79 104.0 96 Room air 11/09 1403 Nasal 3.958672 cannula 11/09 1306 100 Nasal 3.481216 cannula 11/09 1255 97.0 80 18 165/92 116.7 100 Nasal cannula 11/09 1203 Simple 6.655152 mask 11/09 1203 64 14 163/79 99 Nasal 3.410624 cannula 11/09 1148 67 15 162/78 100 Nasal 3.156286 cannula 11/09 1133 68 14 173/85 99 Simple 6.691773 mask 11/09 1118 97.8 79 16 179/81 97 Simple 6.087081 mask 11/09 0738 97.2 66 16 177/83 96 Room air Gen: Alert, in mild discomfort, nl nutrition. EYE: Nl lids conjunctiva. ENT: Nl ears Nose, nl lips,. Neck: Supple, nl thyroid, No masses. CV: Regular Rate Rhythm, no heave or significant murmur. Edema- none LUE digits normal temperature. RESP: Clear to Auscultation, normal Respiratory effort. ABD: Soft, NonDistended,. LYM: No significant cervical Lymphadenopathy. MS: No sign of compartment syndrome, Shoulder is wrapped, arm in sling. NEURO: Nonfocal, grossly normal sensation of LE, +wriggles LUE digits, arm in sling . Preop Labs (09/02/19): CBC:. Hgb 15.7, Plt 408, CHEM: Na 143, K 5.0, Cr 1.03 (eGFR 74.2%), Hgb A1C 6.6% (on 04/2019). (medium to high risk of complications or morbid ity) (major surgery) (IV sedative, meds) Assessment Plan 1.) Anemia of Acute Blood Loss- .will recheck to mckinley. 2.) S/p Left Rotator Cuff re vision- .acute pain control. Anticoagulation as per Dr. Crum. 3.) Hypertension- .follow BP and hold Rxs if SBP <120. 4.) Diabetes-2 OsteoArthritis Hyperlipidemia- .c ontinue on Rx. Seth Elder M.D. Thanks! at 1730 RPT #:[id number] END OF REPORT 2019-11-10 16:52:00-00:00 [facility]) Clinical Note REPORT#:[id number] REPORT STATUS: Signed DATE:11/10/19 TIME: 1651 PATIENT: MARICHUY JONES UNIT #: [id number] ROOM/BED: [address] : 64 AGE: 54 SEX: F ATTEND: Cm Antoine MD ADM AUTHOR: Seth Purvis MD * ALL edits or amendments must be made on the el [employer]/computer document * See Addendum Clinical Note Note: [facility] Seth siegel MD (cell text [phone]) Internal Medicine Consult at request of : Dr Mee Crum Chief Complaint: left shoulder pain HPI: 57yo M is now s/p Left Shoulder scope, revi alyse rotator cuff repair by Dr. Crum. Mr. Fernández relates years of progr essive left shoulder pain ( recently severe), worse with activity, and poppi ng crunchy with restricted motion at times in quality. He has failed conser vative management. Comorbidities: see below. PmHx: . Elevated blood pressure readings, Type 2 diabetes Mellitus. Hypertension, Gerd ALLERGY: Allergies: hydrocodone (Coded, Intermed iate, "FEELS LIKE COMING OUT OF MY SKIN", 10/27/19) Home Medications: Home Medications: METOPROLOL SUCC XL (TOPROL XL) 100 MG PO DAILY LEVALBUTEROL (XOPENEX HFA 45 MCG/ACT) 1 PUFF INH RTQ4H PRN PRN ASTHMA IRBESARTAN (AVAPRO) 300 MG PO DAILY LEVOTHYROXINE (SYNTHROID) 75 MCG PO DAILY OMEPRAZOLE DR (OMEPRAZOLE) 20 MG PO DAILY UBIDECARENONE (CO Q-10) (Unknown Dose) PO DAILY ROSUVASTATIN (CRESTOR) 10 MG PO MON/WED/FRI HYDROCHLOROTHIAZIDE (HCTZ) 25 MG PO MON/WED/FRI NAPROXEN SODIUM (ALEVE) 440 MG PO Q12H PRN PRN P AIN CHOLECALCIFEROL (VITAMIN D3) (VITAMIN D3) 1,000 UNITS PO DAILY CYANOCOBALAMIN (VITAMIN B-12) 1,000 MCG PO DAILY SgHx: .Left hip scope x 2, head surgery, left TH A SHx: Tob: none FHx: .No significant hx of DVT/PE . Alcohol: hx of abuse, now sober Drugs: hx of abu se, now sober Lives: alone Vitals: Vital Signs: Date Time Temp Pulse Resp B/P B/P Pulse O2 O2 F low FiO2 Mean Ox Delivery Rate 11/09 1607 98.6 84 17 155/79 104.0 96 Room air 11/09 1403 Nasal 3.971661 cannula 11/09 1306 100 Nasal 3.602591 cannula 11/09 1255 97.0 80 18 165/92 116.7 100 Nasal cannula 11/09 1203 Simple 6.998469 mask 11/09 1203 64 14 163/79 99 Nasal 3.441812 cannula 11/09 1148 67 15 162/78 100 Nasal 3.876161 cannula 11/09 1133 68 14 173/85 99 Simple 6.613985 mask 11/09 1118 97.8 79 16 179/81 97 Simple 6.041855 mask 11/09 0738 97.2 66 16 177/83 96 Room air Gen: Alert, in mild discomfort, nl nutrition. EYE: Nl lids conjunctiva. ENT: Nl ears Nose, nl lips,. Neck: Supple, nl thyroid, No masses. CV: Regular Rate Rhythm, no heave or significant murmur. Edema- none LUE digits normal temperature. RESP: Clear to Auscultation, normal Respiratory effort. ABD: Soft, NonDistended,. LYM: No significant cervical Lymphadenopathy. MS: No sign of compartment syndrome, Shoulder i s wrapped, arm in sling. NEURO: Nonfocal, grossly normal sensation of LE, +wriggles LUE digits, arm in sling . Preop Labs (09/02/19): CBC:. Hgb 15.7, Plt 408, CHEM: Na 143, K 5.0, Cr 1.03 (eGFR 74.2%), Hgb A1C 6.6% (on 04/2019). (medium to high risk of complications or morbid ity) (major surgery) (IV sedative, meds) Assessment Plan 1.) Anemia of Acute Blood Loss- .will recheck to elías. 2.) S/p Left Rotator Cuff re vision- .acute pain control. Anticoagulation as per Dr. Crum. 3.) Hypertension- .follow BP and hold Rxs if SBP <120. 4.) Diabetes-2 OsteoArthritis Hyperlipidemia- .c ontinue on Rx. Seth Elder M.D. Thanks! at 1730 Addendum 1: 11/10/19 1736 by Seth Purvis MD ERROR - This note is on a DIFFERENT patient(Rm31 3) - please IGNORE this NOTE. - please see my following note which is on the correct patient -Marichuy Jones. ote. at 1740 RPT #:[id number] END OF REPORT 2019-11-10 11:03:00-00:00 [id number] [facility] [address] [place] [address] PATIENT NAME: MARICHUY JONES ADMIT DATE: 11/10/19 ACCOUNT NO: [id number] ROOM NO: [id number] AGE: 54 REPORT TYPE: OPERATIVE REPORT SEX: F ADMITTING PHYSICIAN:Mark Antoine MD ATTENDING PHYSICIAN:Mark Antoine MD OPERATION DATE: 11/10/2019 PREOPERATIVE DIAGNOSIS: Bilateral knee osteoarth ropathy, M17.0. POSTOPERATIVE DIAGNOSIS: Bilateral knee osteoart hropathy, M17.0. PROCEDURES PERFORMED: 1. Computer assisted imageless left total knee a rthroplasty, 00132. . 3. Ultrasound-guided intraarticular injection, r ight knee, . IMPLANTS UTILIZED: DePuy Sigma RP total knee sys tem, size 3 left posterior stabilized femur, size 4 mob ile-bearing tibial tray, 3 x 10 mm rotating platform posterior stabilized tibial insert, and 38 mm ov al patella. All components cemented. ANESTHESIA: General. TOURNIQUET TIME: 21 minutes. ESTIMATED BLOOD LOSS: Less than 20 mL. SURGEON: Mark Antoine MD DENSITY CONTROL PUNCHER: Daniel Tadeo, OPA/LSA CLINICAL INDICATIONS: Ms. Jones is a very pleas ant 54-year-old female from [place], [place], who has been having severe and disabling pain involving both knees. The pain is greater in the left knee as opposed to the right. The pain has been extensive in n ature. Her pain has been refractory to nonoperative intervention. She is admitted for initial left t otal knee arthroplasty with corticosteroid injection of the right knee. PROCEDURE IN DETAIL: 1. COMPUTER-ASSISTED IMAGELESS LEFT TOTAL KNEE A RTHROPLASTY, 09128. 2. . 3. ULTRASOUND-GUIDED INTRAARTICULAR INJECTION, R IGHT KNEE, . Ms. Jones was brought to [facility] operative suite, at which time, she was placed in supine position on the OR table. Routine monitor s were established. General anesthesia was delivered. Af ter satisfactory induction of general anesthesia, a tourniquet was applied to the patient's left low er extremity per MrCheryle PATIENT NAME: MARICHUY JONES Carlyle. The leg was circumferential ly prepped and draped in usual sterile fashion per Mr. Tadeo. The leg was then el evated, exsanguinated, the tourniquet was then insuffla [place] to 300 mmHg. The knee was flexed to 100 degrees per Mr. Sanchezmirianmeghan. Anterior midline incision w as performed. Medial parapatellar arthrotomy was performed. Patella w as everted laterally. Severe grade IV changes noted through all 3 compartment s. Hypertrophic osteophytes were resected. Ligament balancing was achieved. Medial and lateral menisci were resected. Anterior and posterior cruciate l igaments were resected. A centramedullary pin was placed in the anatomic center of the distal femur. The OrthAlign distal femoral resection guide was placed over the centramedullary pin. The computer guides were then placed along the distal femoral resection guide. The knee was registered. The distal femor al resection guide was then pinned in 3 degrees of flexion and 0 degrees of varus valgus angulation referable to the mechanical axis, 10 mm was then resected from the distal femur. The distal femoral resection guide was then rem owen and the distal femur was sized. A size-3 cutting block was used to create the anterior, followed by posterior, followed by chamfer cuts. The appropr iate osteotomy guide was then placed across distal femur and the femoral notch was resected. The proximal tibia was then translated an teriorly. Utilizing extramedullary instrumentation, the proximal tibia was resected perpendi cular to its mechanical axis resecting 10 mm from the lateral tibial plateau. The proxi mal tibia was appropriately sized and a size 4 baseplate was noted to provide optimal coverage. Appropriate rotatory alignment was achieved and the proximal tibia was appropriately prepped. The patella was then resected so as to ensure orthodoxy of its normal height with prosthesis in place. Flexion as well as extension gaps were then chec ked and noted to be equal. Trial components were placed into the joint. Opt imal stability was noted utilizing a 10 mm insert, 0 degrees of gravity e xtension with 135 degrees of gravity flexion were present . Patellofemoral tracking was within normal limits. There was no varus or valgus instability noted. The knee was stable in both flexion as well as extension. The trial components were removed. The b beti surfaces were prepared with cement implantation utilizing pulsatile lavage irrigati on. The tibial tray was cemented into place along with cement implantati on of femoral component. The polyethylene insert was then placed on to the ti bial tray and the knee was placed in full extension. Patellar component was cemented. The tourniquet was then deflated. Meticulous hemostasis achieved wi th Bovie electrocautery. Copious antibiotic lavage was performed. Medium Hemovac drain was then placed deep to the extensor mechanism and the knee was placed into 70 degrees of flexion. Arthrotomy was closed in watertight fas hion with 2.0 Quill suture. Skin was closed with interrupted 0 Vicry l, followed by 2-0 Vicryl, followed by surgical ivis per Mr. Tadeo and sterile dressing was applied by Mr. Tadeo. The patient was then extubated, taylor en to recovery room awake and alert without any anesthetic or operative compli cations. At the end of the case, sponge and needle counts were correct x2. During the procedure, MrCheryle ochoa was invaluable in positioning the patient along with preparation and draping of the extrem ity. He was also vital for providing surgical exposure throughout the proce dure, which greatly expedited performance of the procedure in addition to prot ection of neurovascular structures. PATIENT NAME: MARICHUY JONES The OrthAlign system was invaluable in reducing both intraoperative and postoperative blood loss due to no need to creat e a distal femoral intramedullary drill hole. I n addition, the accuracy of the OrthAlign system is superior to standard intramedullary instrumentat ion as far as accuracy of the distal femoral resection. At this time, the right knee was aseptically pre pped and utilizing biplanar ultrasound image intensification, the right knee was injected with 120 mg of Depo-Medrol. Ms. Jones was then extubated, take n to recovery room awake and alert without any anesthetic or operative compli cations. At the end of the case, sponge and needle counts were correct x2. Dictated By: Mark Antoine MD WT: OP:JEFFERY/MEAGAN/CHIDI Conf#: [id number]/DID#: [id number] Authenticated by Mark Antoine MD On 0 01:52:11 PM Electronically Signed by Mark Antoine MD on 0 11/10/19 at 1352 PATIENT NAME: MARICHUY JONES 2019-11-07 16:13:00-00:00 [id number] [facility] [address] [address] PATIENT NAME: MARICHUY JONES ADMIT DATE: ACCOUNT NO: [id number] ROOM NO: AGE: 54 REPORT TYPE: HISTORY AND PHYSICAL SEX: F ADMITTING PHYSICIAN:Mark Antoine MD ATTENDING PHYSICIAN:Mark Antoine MD ADMISSION DATE: 11/10/2019 ADMITTING DIAGNOSIS: Left knee osteoarthritis, M 17.12. HISTORY OF PRESENT ILLNESS: Ms. Jones is a very pleasant 54-year-old female, who has been having severe and progressive pain involving her left knee. Her pain is occurring on a daily basis. The pain has been refractory to extensive nonoperative intervention. Due to her significan t disability and lack of response to nonoperative treatment, she is admit [place] for left total knee arthroplasty. PAST MEDICAL HISTORY: Anemia, asthma, hypertensi on, migraine headaches, hypothyroidism, hiatal hernia, reflux as well as sleep apnea. PAST SURGICAL HISTORY: Previous surgeries includ e a knee arthroscopy. FAMILY HISTORY: Notable for arthritis, asthma, b reast carcinoma, lung carcinoma, diabetes, hypertension, and cerebrova scular disease. SOCIAL HISTORY: She is . She smok es a half pack of cigarettes per week. She drinks 3 drinks per week. She does sedentar y work as a realtor. MEDICATIONS: Consist of metoprolol, irbesartan, levothyroxine. ALLERGIES: SHE NOTES ALLERGIES TO HYDROCODONE. N O ALLERGIES ARE LISTED. REVIEW OF SYSTEMS: Negative. PHYSICAL EXAMINATION: VITAL SIGNS: 5 feet 8 inches tall, ____. PERTINENT ORTHOPEDIC EVALUATION: Leg lengths are equal. Full painless motion of both hips. Examination of left knee reveals a n antalgic gait. She has a fixed varus deformity. She has painful passive m otion. She has 0 to 105 degrees of motion. There is no ligamentous insta bility. Her distal neurovascular status is intact. DIAGNOSTIC DATA: Radiographic evaluation reveals varus alignment with bsiz-dw-rbvn disease. ASSESSMENT: Left knee pain secondary to severe o steoarthropathy. SURGICAL PLAN: Will be to pr oceed with a computer-assisted imageless left total PATIENT NAME: MARICHUY JONES knee arthroplasty. I have gone over at length wi th Ms. Jones the associated risks involved with this procedure. She understa nds these include, but not limited to bleeding, transfusion require ment, infection, neurovascular damage, leg length inequality, loss of motion, painful scar, persistent limp, loosening of the prosthesis requiring possible rev ision, deep vein thrombosis leading to pulmonary emboli along with complications second radha to anesthesia. Ms. Jones further understands that she will undergo a post erior cruciate sacrificing rotating platform total knee arthroplasty. She, in addition, understands that there are no guarantees or w arranties that she will be pain free as a result of the procedure. She accepts these risks and gives her informed consent to proceed with a computer-assisted imageless left total knee arthroplasty. Dictated By: Mark Antoine MD WT: HP:JEFFERY/MEAGAN/CHIDI Conf#: [id number]/DID#: [id number] Authenticated by Mark Antoine MD On 0 03:10:50 PM Electronically Signed by Mark Antoine MD on 0 11/09/19 at 1511 PATIENT NAME: MARICHUY JONES 2019-10-27 14:08:00-00:00 [id number] [place] [address] PATIENT NAME: MARICHUY JONES ADMIT DATE: ACCOUNT NO: [id number] ROOM NO: AGE: 54 REPORT TYPE: ELECTROCARDIOGRAM SEX: F ADMITTING PHYSICIAN:Mark Antoine MD ATTENDING PHYSICIAN:Mark Antoine MD Order: [id number] Test Reason : PRE OP CLEARANCE HTN Test Date/Time Stamp: SatOct 27 2019 14:08:58 Blood Pressure : / mmHG Vent. Rate : 062 BPM Atrial Rate : 062 BPM P-R Int : 158 ms QRS Dur : 086 ms QT Int : 412 ms P-R-T Axes : 041 022 032 degree s QTc Int : 418 ms Normal sinus rhythm Normal ECG No previous ECGs available Confirmed by CLAUDE AUGUSTIN MD ([id number]) on 10/28/2019 5:03:37 PM Referred By: Mark Antoine Confirmed by:CLAUDE AUGUSTIN MD Electronically Signed by Claude Augustin MD on 10/18 at 1703 PATIENT NAME: MARICHUY JONES
[2022-11-02 09:00] LABS: Absolute Lymphocytes (CBC) 2.1 K/uL (0.7-4.9); Hematocrit 43.9 % (36.0-45.0); Lymphocytes % 30.7 % (15.3-44.8); MCV 90.1 fL (80-100); MPV 8.1 fL (7.6-11.3); RBC Red Blood Cell Count 4.87 M/uL (3.86-4.86)
[2022-11-02 09:01] LABS: Protime INR 0.86
--- NOTE | 2022-11-02 09:14 | RAD REPORT ---
EXAM DESCRIPTION: RAD - Chest Single View - 11/02/2022 9:01 am CLINICAL HISTORY: CHEST PAIN COMPARISON: No comparisons FINDINGS: Lines: None. Lungs: No evidence of edema or pneumonia. Pleural: No significant pleural effusions or pneumothorax. Cardiac: The heart size is within normal limits. Mediastinum: Within normal limits. Bones: No acute fractures. Other: None IMPRESSION: No acute cardiopulmonary disease.
[2022-11-02] MEDS ORDERED: LORazepam 2 MG/ML VIAL ONE (09:15)
[2022-11-02] MEDS ORDERED: Nicardipine/NS 0 MG/0 ML KIT IV ONE (09:15)
[2022-11-02 09:18] LABS: Albumin 3.7 g/dL (3.4-5.0); Bilirubin Direct 0.1 mg/dL (0-0.2); Bilirubin Indirect, Calculated 0.3 mg/dL (0.2-0.8); Bilirubin Total 0.4 mg/dL (0.2-1.0); Magnesium 2.2 mg/dL (1.6-2.4); Potassium 4.2 mEq/L (3.5-5.1); Protein, Total 7.1 g/dL (6.4-8.2); Troponin High Sensitivity 5.5 pg/mL (<58.9)
--- NOTE | 2022-11-02 09:33 | RAD REPORT ---
EXAM DESCRIPTION: CT - Head Brain Wo Cont - 11/02/2022 9:11 am CLINICAL HISTORY: PAIN COMPARISON: No comparisonsNo comparisons TECHNIQUE: All CT scans are performed using dose optimization technique as appropriate and may inclu de automated exposure control or mA/KV adjustment according to patient size. FINDINGS: No intracranial hemorrhage, hydrocephalus or extra-axial fluid collection.No areas of brai n edema or evidence of midline shift. Mucous retention cyst left maxillary sinus. The calvarium is intact. IMPRESSION: No acute intracranial abnormality.
--- NOTE | 2022-11-02 10:11 | RAD REPORT ---
EXAM DESCRIPTION: CT - Head angio - 11/02/2022 10:01 am CLINICAL HISTORY: PAIN COMPARISON: Head Brain Wo Cont dated 11/02/2022 TECHNIQUE: CT angiography of the head was performed with maximum intensity reformatted images. 3D ma ximum intensity pixel (MIP) reconstructions were created All CT scans are performed using dose optimization technique as appropriate and may include automated exposure control or mA/KV adjustment according to patient size. FINDINGS: Anterior circulation: No aneurysm or large vessel occlusion. No hemodynamically significant stenosis. No arteriovenous malf ormation identified. Hypoplastic right A1 segment. Posterior circulation: No aneurysm or large vessel occlusion. No hemodynamically significant stenosis. No arteriovenous malf ormation identified. Left dominant vertebral artery. IMPRESSION: No significant flow abnormality is detected.
--- NOTE | 2022-11-02 10:14 | RAD REPORT ---
EXAM DESCRIPTION: CT - Neck Angio - 11/02/2022 10:01 am CLINICAL HISTORY: PAIN COMPARISON: No comparisons TECHNIQUE: CT angiography of the neck vessels was performed with maximum intensity reformatted image s. CAROTID STENOSIS REFERENCE USING NASCET CRITERIA: Mild - <50% stenosis. Moderate - 50-69% stenosis. Severe - 70-94% stenosis. Near occlusion - 95-99% stenosis. Occluded - 100% stenosis. All CT scans are performed using dose optimization technique as appropriate and may include automated exposure control or mA/KV adjustment according to patient size. FINDINGS: A left aortic arch is identified with normal three vessel configuration of the great vesse ls. No significant flow abnormality is seen of the common carotid bilaterally. Calcified plaque present a t the distal common carotid arteries just proximal to the bifurcation. No hemodynamically significant stenosis . No significant stenosis is identified involving the cervical segments of both internal carotid arteri es. Bilateral ICA calcified plaque. Normal flow is seen within both vertebral arteries. Left dominant vertebral artery. IMPRESSION: No significant flow abnormality of the neck vessels is identified.
[2022-11-02 10:42] LABS: Urine Bacteria None Seen /HPF (<20); Urine Bilirubin NEGATIVE (Negative); Urine Blood 1+ (Negative); Urine Clarity Clear (Clear); Urine Color Colorless (Yellow); Urine Glucose NEGATIVE (Negative); Urine Protein NEGATIVE (Negative); Urine RBC <5 /HPF (None Seen); Urine Urobilinogen Normal (Normal)
[2022-11-02 10:44] LABS: Specific Gravity > 1.030 (1.005-1.030)
--- NOTE | 2022-11-02 11:18 | EDPHYS ---
Physician Documentation [facility] Name: Marichuy Bunn Age: 57 yrs Sex: Female : 1965 Arrival Date: 11/02/2022 Time: 08:24 Bed 2 Private MD: Alex Garcia S ED Physician Nigel Powell HPI: 11/02 08:48 This 57 yrs old Female presents to ER via Ambulatory with complaints of High Blood snw Pressure, Dizziness, Vision Problem, Shortness Of Breath, Headache. 08:48 The patient has elevated blood pressure and discovered this at home. Onset: The snw symptoms/episode began/occurred suddenly, and became persistent. Associated signs and symptoms: Pertinent positives: headache. Severity of symptoms: At its worst the blood pressure was severe, 216 mm Hg. The patient has experienced a previous episode. sees Dr. Byrnes. Historical: - Allergies: 08:40 Hydrocodone-Acetaminophen; not true allergy but does not take it; iw - Home Meds: 08:35 candesartan 32 mg oral tablet daily [Active]; famotidine 40 mg Oral tablet once iw [Active]; nebivolol 20 mg oral tablet daily [Active]; ezetimibe 10 mg oral tablet daily [Active]; levalbuterol HCl inhalation as needed [Active]; - PMHx: 08:40 Hypertensive disorder; Hypothyroidism; Asthma; hiatal hernia; iw - PSHx: 08:40 kim knee; iw - Immunization history:: Adult Immunizations not up to date. - Social history:: Smoking status: Patient reports the use of cigarette tobacco products, smokes one-half pack cigarettes per day. ROS: 08:47 Constitutional: Negative for fever, chills, and weight loss, Eyes: Negative for injury, snw pain, redness, and discharge, ENT: Negative for injury, pain, and discharge, Neck: Negative for injury, pain, and swelling, Cardiovascular: Negative for chest pain, palpitations, and edema, Respiratory: Negative for shortness of breath, cough, wheezing, and pleuritic chest pain, Abdomen/GI: Negative for abdominal pain, nausea, vomiting, diarrhea, and constipation, Back: Negative for injury and pain, : Negative for injury, bleeding, discharge, and swelling, MS/Extremity: Negative for injury and deformity, Skin: Negative for injury, rash, and discoloration, Neuro: Negative for weakness, numbness, tingling, and seizure, +headache Psych: Negative for depression, suicide ideation, homicidal ideation, and hallucinations, + anxiety Exam: 08:43 Constitutional: This is a well developed, well nourished patient who is awake, alert, snw and in no acute distress. Head/Face: Normocephalic, atraumatic. Eyes: Pupils equal round and reactive to light, extra-ocular motions intact. Lids and lashes normal. Conjunctiva and sclera are non-icteric and not injected. Cornea within normal limits. Periorbital areas with no swelling, redness, or edema. ENT: Nares patent. No nasal discharge, no septal abnormalities noted. Tympanic membranes are normal and external auditory canals are clear. Oropharynx with no redness, swelling, or masses, exudates, or evidence of obstruction, uvula midline. Mucous membranes moist. Neck: Trachea midline, no thyromegaly or masses palpated, and no cervical lymphadenopathy. Supple, full range of motion without nuchal rigidity, or vertebral point tenderness. No Meningismus. Chest/axilla: Normal chest wall appearance and motion. Nontender with no deformity. No lesions are appreciated. Cardiovascular: Regular rate and rhythm with a normal S1 and S2. No gallops, murmurs, or rubs. Normal PMI, no JVD. No pulse deficits. Respiratory: Lungs have equal breath sounds bilaterally, clear to auscultation and percussion. No rales, rhonchi or wheezes noted. No increased work of breathing, no retractions or nasal flaring. Abdomen/GI: Soft, non-tender, with normal bowel sounds. No distension or tympany. No guarding or rebound. No evidence of tenderness throughout. Back: No spinal tenderness. No costovertebral tenderness. Full range of motion. Skin: Warm, dry with normal turgor. Normal color with no rashes, no lesions, and no evidence of cellulitis. MS/ Extremity: Pulses equal, no cyanosis. Neurovascular intact. Full, normal range of motion. 08:43 Neuro: Orientation: is normal, Mentation: is normal, Memory: is normal, seizure activity, is not displayed by the patient. 08:43 Psych: Affect is calm, tearful. Vital Signs: 08:33 BP 226 / 117; Pulse 76; Resp 16; Pulse Ox 99% on R/A; iw 09:14 BP 190 / 88; Pulse 59; Resp 16; Pulse Ox 98% on R/A; cm10 09:23 BP 176 / 78; Pulse 61; Resp 16; Pulse Ox 98% on R/A; cm10 10:15 BP 183 / 87; Pulse 54; Resp 16; Pulse Ox 100% on R/A; cm10 10:15 BP 175 / 63; Pulse 54; Resp 16; Pulse Ox 97% on R/A; cm10 11:00 BP 157 / 60; Pulse 61; Resp 16; Pulse Ox 100% on R/A; cm10 11:15 BP 150 / 65; Pulse 57; Resp 16; Pulse Ox 100% on R/A; cm10 MDM: 08:29 Patient medically screened. snw 11:19 Differential diagnosis: hypertensive crisis, Malignant HTN, CVA, intracerebral snw hemorrhage. Data interpreted: Pulse oximetry: on room air is 100 %. Interpretation: normal. Data reviewed: vital signs, nurses notes, lab test result(s), EKG, radiologic studies. Counseling: I had a detailed discussion with the patient and/or guardian regarding: the historical points, exam findings, and any diagnostic results supporting the discharge/admit diagnosis, the presence of at least one elevated blood pressure reading (>120/80) during this emergency department visit, lab results, radiology results, the need for outpatient follow up, for definitive care, to return to the emergency department if symptoms worsen or persist or if there are any questions or concerns that arise at home. Special discussion: I have referred the patient to see his PCP for further evaluation of high blood pressure. Based on the history and exam findings, there is no indication for further emergent testing or inpatient evaluation. I discussed with the patient/guardian the need to see the lift manager for further evaluation of the symptoms. I discussed with the patient/guardian the need to see the neurologist for further evaluation of the symptoms. I discussed with the patient/guardian the need to see the primary care provider for further evaluation of the symptoms. 11/02 08:41 Order name: Basic Metabolic Panel; Complete Time: 09:18 snw 11/02 08:41 Order name: CBC with Diff; Complete Time: 09:05 snw 11/02 08:41 Order name: LFT's; Complete Time: 09:18 snw 11/02 08:41 Order name: Magnesium; Complete Time: 09:18 snw 11/02 08:41 Order name: NT PRO-BNP; Complete Time: 09:18 snw 11/02 08:41 Order name: PT-INR; Complete Time: 09:05 snw 11/02 08:41 Order name: Troponin HS; Complete Time: 09:18 snw 11/02 09:22 Order name: DD; Complete Time: 10:10 snw 11/02 10:27 Order name: Urinalysis W/Microscopic; Complete Time: 10:49 ll1 11/02 08:41 Order name: CT Head Brain wo Cont; Complete Time: 09:37 snw 11/02 08:41 Order name: XRAY Chest (1 view); Complete Time: 09:18 snw 11/02 09:38 Order name: CT Head Angio; Complete Time: 10:14 snw 11/02 09:38 Order name: CT Neck Angio; Complete Time: 10:16 snw 11/02 08:41 Order name: EKG; Complete Time: 08:42 snw 11/02 08:41 Order name: Cardiac monitoring; Complete Time: 09:00 snw 11/02 08:41 Order name: EKG - Nurse/Tech; Complete Time: 09:00 snw 11/02 08:41 Order name: IV Saline Lock; Complete Time: 09:00 snw 11/02 08:41 Order name: Labs collected and sent; Complete Time: 09:00 snw 11/02 08:41 Order name: O2 Per Protocol; Complete Time: 09:00 snw 11/02 08:41 Order name: O2 Sat Monitoring; Complete Time: 09:00 snw Administered Medications: 09:14 Drug: Ativan IVP 0.5 mg Route: IVP; Site: right forearm; cm10 09:45 Follow up: Response: No adverse reaction cm10 11:25 Not Given (Hemodynamic Parameters): niCARdipine IV 5 mg/hr IV at calculated rate See cm10 Administration Instructions; (Standard concentration 25 mg / 250 mL NS); Recommended max rate 15 mg/hr; Titrate 2.5 mg/hr as often as every 15 minutes to achieve goal (see titration policy); Goal parameter SBP less than 160 mmHg 11:25 Drug: fentaNYL (PF) IVP 25 mcg Route: IVP; Site: right forearm; cm10 11:45 Follow up: Response: No adverse reaction cm10 Disposition: 14:03 Co-signature as Attending Physician, Nimisha RUIZ I agree with the assessment [id number] and plan of care. Disposition Summary: 11/02/22 11:17 Discharge Ordered Location: Home snw Condition: Stable snw Diagnosis - Hypertensive urgency snw Followup: snw - With: Emergency Department - When: As needed - Reason: Worsening of condition Followup: snw - With: Alex Garcia MD - When: 2 - 3 days - Reason: Recheck today's complaints, Continuance of care, Re-evaluation by your physician Discharge Instructions: - Discharge Summary Sheet snw - Hypertension, Adult snw - How to Take Your Blood Pressure, [id number] snw - Form - Blood Pressure Record Sheet snw Forms: - Medication Reconciliation Form snw - Thank You Letter snw - Antibiotic Education snw - Prescription Opioid Use snw Prescriptions: - Hydrochlorothiazide 25 mg Oral Tablet - take 1 tablet by ORAL route once daily .; 30 tablet; Refills: 0, Product snw Selection Permitted Signatures: Dispatcher [employer] Nimisha Walters FNP-C MANAGER [employer] Audrey Paiz, RN Nigel Jj MD MD [id number] Leeanna Givens RN RN cm10
--- NOTE | 2022-11-02 11:18 | ER ---
Nurse's Notes [facility] Name: Marichuy Bunn Age: 57 yrs Sex: Female : 1965 Arrival Date: 11/02/2022 Time: 08:24 Bed 2 Private MD: Alex Garcia S Diagnosis: Hypertensive urgency Presentation: 11/02 08:33 Chief complaint: Patient states: BP has been high for days, also feeling SOB and has iw pressure in her head,feels dizzy, taking her regular BP meds. Coronavirus screen: At this time, the client does not indicate any symptoms associated with coronavirus-19. Ebola Screen: Patient negative for fever greater than or equal to 101.5 degrees Fahrenheit, and additional compatible Ebola Virus Disease symptoms Patient denies exposure to infectious person. Patient denies travel to an Ebola-affected area in the 21 days before illness onset. No symptoms or risks identified at this time. Initial Sepsis Screen: Does the patient meet any 2 criteria? No. Patient's initial sepsis screen is negative. Does the patient have a suspected source of infection? No. Patient's initial sepsis screen is negative. Risk Assessment: Do you want to hurt yourself or someone else? Patient reports no desire to harm self or others. Onset of symptoms was October 30, 2022. 08:33 Method Of Arrival: Ambulatory iw 08:33 Acuity: CHUCHO 2 iw Triage Assessment: 09:25 Respiratory: the patient reports symptoms have resolved. cm10 09:25 Respiratory: Reports shortness of breath on exertion. cm10 Historical: - Allergies: 08:40 Hydrocodone-Acetaminophen; not true allergy but does not take it; iw - Home Meds: 08:35 candesartan 32 mg oral tablet daily [Active]; famotidine 40 mg Oral tablet once iw [Active]; nebivolol 20 mg oral tablet daily [Active]; ezetimibe 10 mg oral tablet daily [Active]; levalbuterol HCl inhalation as needed [Active]; - PMHx: 08:40 Hypertensive disorder; Hypothyroidism; Asthma; hiatal hernia; iw - PSHx: 08:40 kim knee; iw - Immunization history:: Adult Immunizations not up to date. - Social history:: Smoking status: Patient reports the use of cigarette tobacco products, smokes one-half pack cigarettes per day. Screenin:24 [facility] ED Fall Risk Assessment (Adult) History of falling in the last 3 months, cm10 including since admission No falls in past 3 months (0 pts) Confusion or Disorientation No (0 pts) Intoxicated or Sedated No (0 pts) Impaired Gait No (0 pts) Mobility Assist Device Used Altered Elimination No (0 pt) Score/Fall Risk Level 0 - 2 = Low Risk. Abuse screen: Denies threats or abuse. Denies injuries from another. Nutritional screening: No deficits noted. Tuberculosis screening: No symptoms or risk factors identified. Assessment: 09:14 General: Appears in no apparent distress. uncomfortable, Behavior is calm, cooperative. cm10 Pain: Complains of pain in chest Pain does not radiate. Quality of pain is described as pressure, Pain began 2-3 days ago. Is intermittent. Cardiovascular: No deficits noted. Heart tones S1 S2 present Capillary refill < 3 seconds Rhythm is regular. Respiratory: No deficits noted. Airway is patent Respiratory effort is even, unlabored, Breath sounds are clear bilaterally. GI: No deficits noted. Derm: No deficits noted. 10:25 Reassessment: No changes from previously documented assessment. gait steady to restroom.ll1 Vital Signs: 08:33 BP 226 / 117; Pulse 76; Resp 16; Pulse Ox 99% on R/A; iw 09:14 BP 190 / 88; Pulse 59; Resp 16; Pulse Ox 98% on R/A; cm10 09:23 BP 176 / 78; Pulse 61; Resp 16; Pulse Ox 98% on R/A; cm10 10:15 BP 183 / 87; Pulse 54; Resp 16; Pulse Ox 100% on R/A; cm10 10:15 BP 175 / 63; Pulse 54; Resp 16; Pulse Ox 97% on R/A; cm10 11:00 BP 157 / 60; Pulse 61; Resp 16; Pulse Ox 100% on R/A; cm10 11:15 BP 150 / 65; Pulse 57; Resp 16; Pulse Ox 100% on R/A; cm10 ED Course: 08:26 Patient arrived in ED. mr 08:26 Alex Garcia MD is Private Physician. mr 08:29 [facility] Heck [facility]C [facility] snw 08:29 Nigel Powell MD is Attending Physician. snw 08:35 Triage completed. iw 08:36 Leeanna Givens, RN is Primary Nurse. cm10 08:36 Arm band placed on. iw 08:51 Initial lab(s) drawn, by me, sent to lab. EKG done, by ED staff. Inserted saline lock: cm10 20 gauge in right forearm, using aseptic technique. Blood collected. 09:02 XRAY Chest (1 view) In Process Unspecified. EDMS 09:13 CT Head Brain wo Cont In Process Unspecified. EDMS 09:23 Pt reports that her chest pain has resolved but she is still having head pressure. cm10 Provider made aware of patient's new blood pressure. 09:25 Patient has correct armband on for positive identification. Bed in low position. Call cm10 light in reach. Side rails up X2. Client placed on continuous cardiac and pulse oximetry monitoring. NIBP monitoring applied. 09:[address] via stretcher. cm10 09:54 DD Sent. cm10 10:02 CT Head Angio In Process Unspecified. EDMS 10:02 CT Neck Angio In Process Unspecified. EDMS 10:06 Patient moved back from CT. Nurse Practitioner and/or Physician [employer] Pul[employer] to see cm10 patient. 10:35 Urinalysis W/Microscopic Sent. kc6 11:12 No provider procedures requiring assistance completed. cm10 11:17 Alex Garcia MD is Referral Physician. snw 11:28 Nurse Practitioner and/or Physician [employer] Pul[employer] to see patient. cm10 11:43 IV discontinued, intact, bleeding controlled, No redness/swelling at site. Pressure cm10 dressing applied. 11:44 Pt provided with D/C paperwork regarding ED visit. All questions answered. Pt cm10 verbalized understanding of follow-up plan of care. Pt leaving ambulatory accompanied by . Administered Medications: 09:14 Drug: Ativan IVP 0.5 mg Route: IVP; Site: right forearm; cm10 09:45 Follow up: Response: No adverse reaction cm10 11:25 Not Given (Hemodynamic Parameters): niCARdipine IV 5 mg/hr IV at calculated rate See cm10 Administration Instructions; (Standard concentration 25 mg / 250 mL NS); Recommended max rate 15 mg/hr; Titrate 2.5 mg/hr as often as every 15 minutes to achieve goal (see titration policy); Goal parameter SBP less than 160 mmHg 11:25 Drug: fentaNYL (PF) IVP 25 mcg Route: IVP; Site: right forearm; 10 11:45 Follow up: Response: No adverse reaction cm10 Medication: 09:25 VIS not applicable for this client. cm10 Outcome: 11:17 Discharge ordered by MD. hope 11:44 Discharged to home cm10 11:44 Condition: good 11:44 Discharge instructions given to patient, Instructed on discharge instructions, follow up and referral plans. Prescriptions given X 1. 11:52 Patient left the ED. cm10 Signatures: Dispatcher [employer] EDMS Nimisha Hcek, [employer] DIRECTOR-Lelia Rojo Audrey Paiz, RN Madhuri Sahni RN RN ll1 Shayy Littlejohn RN RN kc6 Leeanna Givens RN RN cm10
[2022-11-02] MEDS ORDERED: FENTANYL CITR 100 MCG/2 ML ONE (11:30)
[2022-11-02 12:51] VITALS: O2SAT 100
[2022-11-02 12:52] VITALS: BP 150/65
--- NOTE | 2022-11-05 17:57 | EKG ---
Test Date: 2022-11-02 Test Time: 08:37:51 Managed Services Consultant: JO MEASUREMENT RESULTS: Intervals: Rate: 65 KS: 154 QRSD: 78 QT: 418 QTc: 434 [place]: P: 46 KS: 154 QRS: 36 T: 71 INTERPRETIVE STATEMENTS: Normal sinus rhythm Nonspecific ST and T wave abnormality Abnormal ECG No previous ECG available for comparison Electronically Signed On 11-05-22 17:52:21 CDT by Matthew Gutierrez
== END 2022-11-02 11:52 | disposition home or self-care (01) ==
LOC: ER 08:24
DX: I16.0 Hypertensive urgency (principal); I10 Essential (primary) hypertension; E03.9 Hypothyroidism, unspecified; F17.210 Nicotine dependence, cigarettes, uncomplicated
CPT/HCPCS: 85025; 81001; 80048; 36415; 83735; 85610; 85379; 80076; 84484; 83880; 70450; 70496; 70498; 71045; 96375; 96374; 99285; Q9967; J3010; 93005